=== PATIENT | male | born 1955 | race Caucasian/White ===

== ENCOUNTER 2020-07-09 02:02 | Emergency (ER) | payer MEDICARE, MEDICAID, SELFPAY ==
[2020-07-09 02:03] VITALS: BP 108/66; PULSE 61; RESP 17; TEMP 36.4; O2SAT 98; BMI 21.2
--- NOTE | 2020-07-09 02:15 | PC.NURSE ---
EKG done at 0215 and shown to ER doctor
--- NOTE | 2020-07-09 02:16 | XR_ITS ---
WS: [id number] PORTABLE CHEST HISTORY: sob COMPARISON: None available. Prior CABG. Slight elevation of the LEFT hemidiaphragm. Lungs are hyperinflated with mild biapical pleural thicke emmett. Increased interstitial thickening at the RIGHT lung base. Small LEFT pneumothorax. Cardiac size: Normal. Mediastinum/Aorta: Normal mediastinum. No osseous abnormality seen. XR/XR chest 1V portable [id number] IMPRESSION: 1. Small LEFT pleural effusion and suspected mild LEFT lower lobe pneumonitis. 2. Prior CABG.
--- NOTE | 2020-07-09 02:17 | ECG_ITS ---
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 Measurements Intervals [place] Rate: 59 P: 87 [place]: 164 QRS: 86 QRSD: 98 T: 72 QT: 380 QTc: 379 Interpretive Statements SINUS BRADYCARDIA NONSPECIFIC T-WAVE ABNORMALITY No previous ECG available for comparison Electronically Signed On 07-10-2020 0:13:39 CDT by Naseem Villalobos M.D. [email or web address]/[id number] f
[2020-07-09 02:38] LABS: ABG PCO2 37.1 mmHg (35-45); ABG PH Result 7.45 (7.35-7.45); Arterial Blood Gas Hematocrit 30.6 % (42-52); Base Excess ABG 1.9 mmol/L (-2.0-2.0); Blood Gas Allen Test Pos; Blood Gas Sample Site Radial, left; Blood Gas Sample Type Arterial; HCO3 ABG 25.9 mmol/L (22-26); HGB O2 Sat 93.3 % (95-100); Methemoglobin 0.5 % (0.4-1.5); Oxygen Device ROOM AIR; PO2 ABG 67.4 mmHg (80.0-100.0)
--- NOTE | 2020-07-09 02:50 | W.ED.SOB ---
HPI - SOB/Dyspnea General: Chief Complaint: Shortness of Breath/Dyspnea Stated Complaint: diff breathing Time Seen by Provider: 07/09/20 02:04 History of Present Illness: HPI Narrative: 64-year-old male 2 weeks out from two-vessel CABG performed at [facility]. He presents after awakening with shortness of breath that was significant. He never really had chest pain, save the postsurgical pain he has been dealing with. Shortness of breath has improved at this point to some degree. MD elicited complaint: shortness of breath Pertinent past history: other Associated symptoms: Reports nausea and orthopnea; Deny abdominal pain, chest pain, dizziness, fever(s), palpitations or vomiting Review of Systems Const: Denies: fever(s) or chills Eyes: Denies: change in vision or blurry vision ENMT: Denies: swelling of lips/tongue or sinus pain Card: Reports: orthopnea; Denies: chest pain, palpitations, irregular heart rhythm, edema, swelling of feet/ankles or dyspnea on exertion Resp: Reports: dyspnea; Denies: productive cough, non-productive cough or wheezing GI: Reports: nausea; Denies: abdominal pain or vomiting : Denies: difficulty urinating, dysuria or hematuria Musc: Denies: neck pain Skin/Breast: Denies: rash or erythema Neuro: Denies: headache(s), dizziness or vertigo Psych: Denies: anxiety Physical Exam Const: GENERAL APPEARANCE: well developed ORIENTATION/CONSCIOUSNESS: Yes oriented to person, Yes oriented to place and Yes oriented to time HENMT: COMMON NORMALS: normocephalic, external ears normal and Normal external nose present HEAD & SCALP: normocephalic FACE & SINUS: normal facial exam NOSE: Normal external nose present and No nasal discharge present EXTERNAL EAR: Yes external ears normal Eye: COMMON NORMALS: Equal, round and reactive pupils present, EOMs intact bilaterally and conjunctivae normal EYELID: eyelids normal CONJUNCTIVA: Yes conjunctivae normal PUPIL: Yes Equal, round and reactive pupils present Neck/C-Spine: COMMON NORMALS: full ROM GENERAL: No tracheal deviation Chest: COMMONS NORMALS: normal inspection of the chest CHEST: No tenderness Resp: COMMON NORMALS: clear to auscultation bilaterally EFFORT & INSPECTION: No tachypneic, No respiratory distress, No retractions, No uses accessory muscles and No tracheal deviation AUSCULTATION: clear to auscultation bilaterally, no rhonchi, no wheezes and lung sounds not diminished Cardio: COMMON NORMALS: regular rate and regular rhythm RATE: regular rate RHYTHM: regular rhythm HEART SOUNDS: no murmurs PERIPHERAL PULSES: radial pulses present GI: INSPECTION: No abdominal distension AUSCULTATION: No Hyperactive bowel sounds present and No Hypoactive bowel sounds present PALPATION: No Guarding due to palpation present (GI) and No Rigid due to palpation PERCUSSION: no dullness to percussion and no tympanic to percussion Neuro: SENSORIUM/ORIENTATION: Yes oriented to person, Yes oriented to place and Yes oriented to time Psych: COMMON NORMALS: mental status grossly normal Skin: COMMON NORMALS: no rashes or lesions noted GENERAL SKIN EXAM: no rashes or lesions noted Course Vital Signs: Vital signs: Vital Signs Temperature 97.5 F L 07/09/20 02:03 Pulse Rate 51 L 07/09/20 05:25 Respiratory Rate 22 H 07/09/20 03:00 Blood Pressure 97/60 07/09/20 05:25 Pulse Oximetry 98 07/09/20 04:20 MDM - SOB/Dyspnea MDM Narrative: Medical decision making narrative: Self resolved chest discomfort and shortness of breath, in a patient who had CABG surgery a couple weeks ago. His discomfort was not really pain, it was more of a spasm in the chest. [place] like he could not take a deep breath. This resolved on its own. His saturations have been 98 to 100% on room air. His scar looks clinically very good. His chest x-ray shows no mediastinal widening, no cardiomegaly, no pleural effusions. Lungs are clear. Hemoglobin is 9.7. White count 7.1. Sodium 129. His potassium is normal at 4.1. His troponin did not elevate at 2 hours. His EKG shows no acute ST changes. He will be allowed home. Lab Data: Labs: Lab Results 07/09/20 07/09/20 07/09/20 Range/Units 02:30 02:35 02:35 WBC 7.1 (4.0-10.0) 10^3/ uL RBC 3.31 L (4.1-5.3) 10^6/u L Hgb 9.7 L (11.7-16.6) g/dL Hct 31.8 L (42.0-52.0) % MCV 96.1 H (80-94) fL MCH 29.3 (28.0-34.0) pg MCHC 30.5 (30.0-36.0) g/dL RDW 12.5 (12.1-15.1) % Plt Count 398 (130-400) 10^3/c mm MPV 8.5 (7.4-10.4) fL Neut % (Auto) 69.8 % Lymph % (Auto) 17.1 % Elliott % (Auto) 9.0 % Eos % (Auto) 2.9 % Baso % (Auto) 0.8 % Neut # (Auto) 4.96 (1.8-7.7) 10^3/u L Lymph # (Auto) 1.2 (0.8-4.8) 10^3/u L Elliott # (Auto) 0.6 (0.2-0.9) 10^3/u L Eos # (Auto) 0.2 (0.0-0.8) 10^3/u L Baso # (Auto) 0.1 (0.0-0.1) 10^3/u L Nucleated RBC % (a uto) 0 % Nucleated RBCs # 0.0 /100WBC Specimen Type Arterial Sample Site Radial, left ABG pH 7.45 (7.35-7.45) ABG pCO2 37.1 (35-45) mmHg ABG pO2 67.4 L (80.0-100.0) mmH g ABG HCO3 25.9 (22-26) mmol/L ABG Base Excess 1.9 (-2.0-2.0) mmol/ L Suhas Test Pos Hematocrit 30.6 L (42-52) % Hgb O2 Saturation 93.3 L (95-100) % Carboxyhemoglobin 1.0 (0.4-20.1) %THgb Methemoglobin 0.5 (0.4-1.5) % Total Hemoglobin 10.0 L (14-18) g/dL O2 Delivery Device Room air Vp Medical ID ellpe Sodium 129 L (136-145) mmol/L Potassium 4.1 (3.5-5.1) mmol/L Chloride 97 L (98-107) mmol/L Carbon Dioxide 23 (22-29) mmol/L Anion Gap 13.1 (5-19) BUN 11 (8-23) mg/dL Creatinine 1.0 (0.7-1.2) mg/dL GFR Calculation 74.8 L (90-130) mL/min Glucose 99 (65-115) mg/dL Calculated Osmolal ity 264 L (285-295) mOsm/k g Lactic Acid (0.5-2.2) mmol/L Calcium 8.9 (8.5-10.5) mg/dL Total Bilirubin 0.2 (0.15-1.2) mg/dL AST 12 (0-40) U/L ALT 11 (0-41) U/L Alkaline Phosphata se 93 (40-130) IU/L Troponin T Baselin e (0-15) ng/L Troponin T 120 Min [place] (0-15) ng/L Delta Troponin T (0-10) ABS# NT-Pro-B Natriuret Pep 823 H (0-125) pg/mL Total Protein 6.5 L (6.6-8.7) g/dL Albumin 3.2 L (3.5-5.2) g/dL Globulin 3.3 (1.3-4.6) g/dL 07/09/20 07/09/20 07/09/20 Range/Units 02:35 02:35 04:25 WBC (4.0-10.0) 10^3/ uL RBC (4.1-5.3) 10^6/u L Hgb (11.7-16.6) g/dL Hct (42.0-52.0) % MCV (80-94) fL MCH (28.0-34.0) pg MCHC (30.0-36.0) g/dL RDW (12.1-15.1) % Plt Count (130-400) 10^3/c mm MPV (7.4-10.4) fL Neut % (Auto) % Lymph % (Auto) % Elliott % (Auto) % Eos % (Auto) % Baso % (Auto) % Neut # (Auto) (1.8-7.7) 10^3/u L Lymph # (Auto) (0.8-4.8) 10^3/u L Elliott # (Auto) (0.2-0.9) 10^3/u L Eos # (Auto) (0.0-0.8) 10^3/u L Baso # (Auto) (0.0-0.1) 10^3/u L Nucleated RBC % (a uto) % Nucleated RBCs # /100WBC Specimen Type Sample Site ABG pH (7.35-7.45) ABG pCO2 (35-45) mmHg ABG pO2 (80.0-100.0) mmH g ABG HCO3 (22-26) mmol/L ABG Base Excess (-2.0-2.0) mmol/ L Suhas Test Hematocrit (42-52) % Hgb O2 Saturation (95-100) % Carboxyhemoglobin (0.4-20.1) %THgb Methemoglobin (0.4-1.5) % Total Hemoglobin (14-18) g/dL O2 Delivery Device Vp Medical ID Sodium (136-145) mmol/L Potassium (3.5-5.1) mmol/L Chloride (98-107) mmol/L Carbon Dioxide (22-29) mmol/L Anion Gap (5-19) BUN (8-23) mg/dL Creatinine (0.7-1.2) mg/dL GFR Calculation (90-130) mL/min Glucose (65-115) mg/dL Calculated Osmolal ity (285-295) mOsm/k g Lactic Acid 1.1 (0.5-2.2) mmol/L Calcium (8.5-10.5) mg/dL Total Bilirubin (0.15-1.2) mg/dL AST (0-40) U/L ALT (0-41) U/L Alkaline Phosphata se (40-130) IU/L Troponin T Baselin e 38 H (0-15) ng/L Troponin T 120 Min [place] 38.72 H (0-15) ng/L Delta Troponin T 0.72 (0-10) ABS# NT-Pro-B Natriuret Pep (0-125) pg/mL Total Protein (6.6-8.7) g/dL Albumin (3.5-5.2) g/dL Globulin (1.3-4.6) g/dL Discharge Plan Discharge Patient Disposition: Home Clinical Impression: Chest discomfort Condition: Stable Discharge Orders: Discharge Order (Routine); Ordered 07/09/20 Ordered By: Augusto Thurston Discharge Diet: Usual diet Discharge Activity: Increase activity as tolerated Patient Instructions: Chest Pain (ED) Activity Restrictions/Additional Instructions: Return for any return of your chest discomfort, shortness of breath, or any other concerning symptoms such as cough, fever greater than 100, sputum production, leg swelling, etc. Call your doctor Friday morning. There may be more outpatient tests they wish to perform. You should have your blood count checked in several days to ensure it is staying at an appropriate level. Coding Level of Care Code ED Laminator Printed Circuit Boards for Chg Fwd Exam Comprehensive
[2020-07-09 02:58] LABS: Basophils # 0.1 10^3/uL (0.0-0.1); Basophils % 0.8 %; Eosinophils # 0.2 10^3/uL (0.0-0.8); Eosinophils % 2.9 %; Hematocrit 31.8 % (42.0-52.0); Hemoglobin 9.7 g/dL (11.7-16.6); Lymphocytes # 1.2 10^3/uL (0.8-4.8); Lymphocytes % 17.1 %; Mean Corpuscular HGB Conc 30.5 g/dL (30.0-36.0); Mean Corpuscular Hemoglobin 29.3 pg (28.0-34.0); Mean Corpuscular Volume 96.1 fL (80-94); Mean Platelet Volume 8.5 fL (7.4-10.4); Monocytes # 0.6 10^3/uL (0.2-0.9); Neutrophils # 4.96 10^3/uL (1.8-7.7); Neutrophils % 69.8 %; Nucleated Red Blood Cells % 0 %; Platelet Count 398 10^3/cmm (130-400); Red Blood Count 3.31 10^6/uL (4.1-5.3); Red Cell Distribution Width 12.5 % (12.1-15.1); White Blood Count 7.1 10^3/uL (4.0-10.0)
[2020-07-09 03:00] VITALS: BP 104/52; RESP 22; O2SAT 100
[2020-07-09 03:17] LABS: Lactic Sepsis W/Reflex 1.1 mmol/L (0.5-2.2)
[2020-07-09 03:29] LABS: Alanine Aminotransferase 11 U/L (0-41); Albumin Level 3.2 g/dL (3.5-5.2); Alkaline Phosphatase 93 IU/L (40-130); Anion Gap 13.1 (5-19); Aspartate Amino Transferase 12 U/L (0-40); Blood Urea Nitrogen 11 mg/dL (8-23); Calcium 8.9 mg/dL (8.5-10.5); Carbon Dioxide 23 mmol/L (22-29); Chloride 97 mmol/L (98-107); Globulin 3.3 g/dL (1.3-4.6); Glomerular Filtration Rate 74.8 mL/min (90-130); Glucose 99 mg/dL (65-115); NT Pro B Type Natriuretic Pept 823 pg/mL (0-125); Osmolality Calculated 264 mOsm/kg (285-295); Potassium 4.1 mmol/L (3.5-5.1); Sodium 129 mmol/L (136-145); Total Bilirubin 0.2 mg/dL (0.15-1.2); Total Protein 6.5 g/dL (6.6-8.7)
[2020-07-09 03:54] LABS: Troponin(5th) Baseline 38 ng/L (0-15)
--- NOTE | 2020-07-09 04:04 | PC.NURSE ---
EKG done at 0405 and shown to ER doctor
--- NOTE | 2020-07-09 04:17 | ECG_ITS ---
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 Measurements Intervals [place] Rate: 62 P: 87 WA: 169 QRS: 75 QRSD: 102 T: 75 QT: 354 QTc: 362 Interpretive Statements SINUS RHYTHM NONSPECIFIC T-WAVE ABNORMALITY No previous ECG available for comparison Electronically Signed On 07-10-2020 0:27:18 CDT by Naseem Villalobos M.D. [email or web address].PVPower/store/[id number]
[2020-07-09 04:20] VITALS: BP 94/52; PULSE 57; O2SAT 98
[2020-07-09 04:54] LABS: Troponin 5 2HR 38.72 ng/L (0-15); Troponin 5 2HR Delta 0.72 ABS# (0-10)
[2020-07-09 05:25] VITALS: BP 97/60; PULSE 51
== END 2020-07-09 06:04 | disposition home or self-care (01) ==
PROVIDERS: Emergency Provider Emergency Medicine
DX: R07.89 Other chest pain (principal)
CPT/HCPCS: 12345; 36600; 71045; 80053; 82805; 83605; 83880; 84484; 85025; 93005; 99283; 99284

== ENCOUNTER → 2021-08-17 11:07 | Outpatient (BNVA) | payer MEDICARE, MEDICAID, SELFPAY | PROVIDERS: Visit Provider Surgery | DX: Z01.812 Encounter for preprocedural laboratory examination (principal); Z20.822 Contact with and (suspected) exposure to COVID-19 | CPT/HCPCS: 87635 ==

== ENCOUNTER 2021-08-23 06:21 | Day surgery (SDC) | payer MEDICARE, MEDICAID, SELFPAY ==
[2021-08-21 08:27] VITALS: BMI 22.1
[2021-08-23 06:32] VITALS: BP 143/91; PULSE 98; RESP 18; TEMP 36.3; O2SAT 98
--- NOTE | 2021-08-23 06:45 | W.PM.OPSUD ---
Surgery/Procedure H&P Update DATE OF PROCEDURE: August 23, 2021 DATE H&P PERFORMED: 08/14/21 H&P UPDATE INFORMATION: No changes to prior documentation PREOP DIAGNOSIS: Hematochezia, history of colon polyps. PLANNED PROCEDURE: Operation Date: 08/23/21 07:30 Proposed Procedures p Colonoscopy 68077 K92.1(Not Applicable) - Bao Whitfield MD
[2021-08-23 06:52] VITALS: BP 134/84; PULSE 68; RESP 18; TEMP 36.1; O2SAT 99
--- NOTE | 2021-08-23 07:04 | ANES.PREANE2 ---
Pre-Anesthetic Assessment Pre-Anesthetic Assessment: Height/Weight: Height 1.75 m Weight 68.039 kg Temp Pulse Resp BP Pulse Ox 97 F L 68 18 134/84 99 08/23/21 06:52 08/23/21 06:52 08/23/21 06:52 08/23/21 06:52 08/23/21 06:52 Preop Diagnosis: Hematochezia, history of colon polyps. Proposed Procedure: Operation Date: 08/23/21 07:30 Proposed Procedures p Colonoscopy 62816 K92.1(Not Applicable) - Bao Whitfield MD Familial anesthetic complications: none Was Beta Ezra taken within 24 hours: Yes Was Clonidine taken within 24 hours: N/A Last intake: Intake Last Solid Date 08/21/21 Social: Social History: No tobacco (history) Exam: Pre-Anes Outpt Exam: alert, oriented x 3, clear to auscultation bilaterally and regular rate & rhythm Airway: Submandibular: WNL Cervical ROM: WNL MP: 2 Dentition: False Pulmonary: Pulmonary: Asthma, COPD, REYNOLDS and Sleep apnea CV/HEM: CV/HEM: CAD, HTN and GA Comments: cabg x 2 stent x 1 : : None reported Hepatic: Hepatic: None reported GI: GI: GERD (occasional ) Metabolic: Metabolic: Hyperlipidemia Musc/skel: Musc/skel: Lower Back Pain and OA/DJD Neuropsych: Comments: had an intenna go through his eye socket and claims to not have any deficits Anesthetic Plan: ASA status: 3 Anesthesia: MAC Risk of > 500 ml blood loss (7ml/kg in children): No Data Anesthesia Cardiac Studies: No Data to Display
--- NOTE | 2021-08-23 07:11 | ECG_ITS ---
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 Measurements Intervals [place] Rate: 61 P: 83 MT: 170 QRS: 40 QRSD: 97 T: 39 QT: 394 QTc: 398 Interpretive Statements SINUS RHYTHM WITH SINUS ARRHYTHMIA VOLTAGE CRITERIA FOR LVH [MEETS CRITERIA IN ONE OF: R(aVL), S(V1), R(V5), R(V5/V6)+S(V1)] Compared to ECG 07/09/2020 04:03:47 Left ventricular hypertrophy now present T-wave abnormality no longer present Electronically Signed On 08-24-2021 5:52:54 CDT by Jamee Bell M.D. [id number]
[2021-08-23] MEDS: sodium chloride 0.9% 1,000 ML 30 ML IV (07:15)
[2021-08-23 08:40] VITALS: BP 113/65; PULSE 72; RESP 16; TEMP 36.2; O2SAT 99
--- NOTE | 2021-08-23 08:46 | ANE.PACU2 ---
Inpatient post-anesthesia follow up: Airway intact: Yes Vital signs: Temperature 97.2 F Pulse Rate 72 Respiratory Rate 16 Blood Pressure 113/65 Pulse Oximetry 99 Oxygen Delivery Me thod Room Air Oxygen Flow Rate Fraction of Inspir ed Oxygen Hydration adequate: Yes Nausea and vomiting: No Pain level: 1 Mental status: Baseline
[2021-08-23 09:01] VITALS: BP 128/77; PULSE 73; RESP 18; O2SAT 98
--- NOTE | 2021-08-23 10:16 | PC.NURSE ---
Pt gave a name and number for the person whom he said would pick him up. I called the number and the woman (Akosua) said she was unaware he wanted her to pick him up and had no idea she was supposed to come in today. She stated that she lived in [facility] and it would take some time for her to come in and get him. Then Akosua called back and stated Isaac would be coming to get the pt becuase he could get here faster and it would only take him about an hour. I instructed her that once someone had arrived they would need to come into the hospital and tell the admissions desk there were here to orange picking supervisor the pt so they would call us and we would bring the pt to the door at that time. The pt is sitting in the specials room waiting for someone to get here to pick him up and take him home.
== END 2021-08-23 11:40 | disposition home or self-care (01) ==
PROVIDERS: Visit Provider Surgery
PROC: 0DJD8ZZ Inspection of Lower Intestinal Tract, Via Natural or Artificial Opening Endoscopic (ICD-10-PCS; CPT 45378; principal; 2021-08-23 07:30)
DX: K92.1 Melena (principal); Z86.010 Personal history of colon polyps; Q27.33 Arteriovenous malformation of digestive system vessel; K64.8 Other hemorrhoids; M19.90 Unspecified osteoarthritis, unspecified site; J43.9 Emphysema, unspecified; I25.10 Atherosclerotic heart disease of native coronary artery without angina pectoris; I11.0 Hypertensive heart disease with heart failure; I50.9 Heart failure, unspecified; I25.2 Old myocardial infarction; E78.00 Pure hypercholesterolemia, unspecified; F17.210 Nicotine dependence, cigarettes, uncomplicated; Z79.82 Long term (current) use of aspirin; Z95.1 Presence of aortocoronary bypass graft; E78.5 Hyperlipidemia, unspecified
CPT/HCPCS: 45378; 93005; 96360; 96361; J2704; J7030

== ENCOUNTER 2022-11-16 09:35 | Emergency (ER) | payer MEDICARE, MEDICAID, SELFPAY ==
[2022-11-16 09:35] VITALS: BP 154/79; PULSE 56; RESP 15; TEMP 36.6; O2SAT 99
--- NOTE | 2022-11-16 09:43 | XRR_ITS ---
PROCEDURE INFORMATION: Exam: XR Chest Exam date and time: 11/16/2022 10:02 AM Age: 67 years old Clinical indication: Cough and dyspnea; Prior surgery; Additional info: Dyspnea/cough TECHNIQUE: Imaging protocol: Radiologic exam of the chest. Views: 1 view. COMPARISON: CR XR chest 1V portable [id number] 07/09/2020 2:21 AM FINDINGS: Lungs: The lung parenchyma is clear. Pleural spaces: No pneumothorax. No pleural effusion. Heart/Mediastinum: See Bones/joints finding. Bones/joints: Median sternotomy wires noted. Postsurgical changes in the mediastinum. XR/XR chest 1V portable [id number] IMPRESSION: No acute cardiopulmonary abnormality identified.
--- NOTE | 2022-11-16 09:43 | ECG_ITS ---
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 Measurements Intervals [place] Rate: 53 P: 81 [place]: 177 QRS: 70 QRSD: 97 T: 52 QT: 416 QTc: 391 Interpretive Statements SINUS BRADYCARDIA VOLTAGE CRITERIA FOR LVH [MEETS CRITERIA IN ONE OF: R(aVL), S(V1), R(V5), R(V5/V6)+S(V1)] Compared to ECG 08/23/2021 07:21:25 Sinus rhythm no longer present Sinus arrhythmia no longer present Electronically Signed On 11-17-2022 19:50:43 PLANT EQUIPMENT ENGINEER by Naseem Villalobos M.D. [email or web address] [facility].[email or web address]/store/[id number]
--- NOTE | 2022-11-16 09:54 | ED_ITS ---
HPI - Chest Pain General: Chief Complaint: Chest Pain Stated Complaint: chest pain and SOB Time Seen by Provider: 11/16/22 09:41 Source: patient Mode of arrival: ambulatory History of Present Illness: 67-year-old male who presents emergency room with complaints of chest pain. Chest pain began yesterday. He was not exerting hims elf radiates into his back and neck and left arm. He is pain-free at this time. When asked if he had other episodes recently he really could not tell me he states he does not remember that his short-term memory is poor. He does reaffirm that he is pain-free now he has no diaphoresis nausea or vomiting associated with the episode yesterday and overnight. He has known history of coronary artery disease and previously had a bypass graft has not been following with a purchasing/receiving recently. He is a former smoker is not diabetic. MD complaint: chest pain Onset (ago): day(s) Timing of current episode: episodic Onset: during rest Pain location: left chest Pain radiation: left arm, back and neck Severity: mild Quality: sharp Relieving factors: nothing Exacerbating factors: nothing Associated symptoms: Deny abdominal pain, diaphoresis, dyspnea, fever(s), leg edema, nausea, palpitations, sense of impending doom, syncope or vomiting Treatment prior to arrival: none Review of Systems Const: Denies: fever(s), chills or diaphoresis ENMT: Denies: throat pain, ear or mastoid pain, nasal discharge or nasal congestion Card: Reports: chest pain; Denies: palpitations, irregular heart rhythm, edema, syncope, dyspnea on exertion or orthopnea Resp: Denies: dyspnea GI: Denies: abdominal pain, nausea or vomiting : Denies: flank pain, dysuria, urinary frequency or urinary urgency Skin/Breast: Denies: rash or pruritus Physical Exam Const: GENERAL APPEARANCE: cooperative and comfortable ORIENTAT ION/CONSCIOUSNESS: Yes awake, Yes oriented to person, Yes oriented to place and Yes oriented to time HENMT: COMMON NORMALS: normocephalic, atraumatic and hearing grossly normal bilaterally HEAD & SCALP: normocephalic and atraumatic Resp: COMMON NORMALS: normal respiratory effort, No retractions, No use of accessory muscles and clear to auscultation bilaterally AUSCULTATION: clear to auscultation bilaterally Cardio: COMMON NORMALS: regular rate, regular rhythm and No murmurs present (Cardio) RATE: regular rate RHYTHM: regular rhythm GI: COMMON NORMALS: Soft to palpation and No hepatosplenomegaly present AUSCULTATION: Yes normoactive bowel sounds PALPATION: Yes Soft to palpation, No Tenderness to palpation present (GI), No Guarding due to palpation present (GI) and Yes No hepatosplenomegaly present Extremity: COMMON NORMALS: normal to inspection, capillary refill normal, no clubbing, cyanosis or edema, no calf tenderness and no pedal edema Neuro: SENSORIUM/ORIENTATION: Yes oriented to person, Yes oriented to place and Yes oriented to time Skin: COMMON NORMALS: no rashes or lesions noted GENERAL SKIN EXAM: no rashes or lesions noted Course Vital Signs: Vital signs: Vital Signs Temperature 97.9 F 11/16/22 09:35 Pulse Rate 52 L 11/16/22 11:31 Respiratory Rate 16 11/16/22 11:31 Blood Pressure 155/88 11/16/22 11:31 Pulse Oximetry 99 11/16/22 09:35 Oxygen Delivery Me thod 11/16/22 09:35 MDM - Chest Pain Medical Decision Making EKG and cardiac enzymes are unremarkable no acute ST changes on EKG. Patient has had no further symptoms. We will set him up for Lexiscan sestamibi stress test and follow-up with cardiology. In addition to that we will have him continue to take baby aspirin daily add isosorbide mononitrate 30 mg daily. Return if is further problems. Medical Records I reviewed the patient's medical records. Lab Data I reviewed the patient's lab results. 11/16/22 09:58 11/16/22 09:58 Radiology Impressions Chest X-Ray 11/16/22 09:43 IMPRESSION: No acute cardiopulmonary abnormality identified. Laboratory Results WBC 5.3 10^3/uL (4.0-10.0) 11/16/22 09:58 RBC 5.21 10^6/uL (4.1-5.3) 11/16/22 09:58 Hgb 15.2 g/dL (11.7-16.6) 11/16/22 09:58 Hct 46.5 % (42.0-52.0) 11/16/22 09:58 MCV 89.3 fl (80-94) 11/16/22 09:58 MCH 29.2 pg (28.0-34.0) 11/16/22 09:58 MCHC 32.7 g/dL (30.0-36.0) 11/16/22 09:58 RDW 11.9 % (12.1-15.1) L 11/16/22 09:58 Plt Count 259 10^3/cmm (130-400) 11/16/22 09:58 MPV 10.0 fL (7.4-10.4) 11/16/22 09:58 Neut % (Auto) 60.1 % 11/16/22 09:58 Lymph % (Auto) 28.3 % 11/16/22 09:58 Morrison % (Auto) 8.5 % 11/16/22 09:58 Eos % (Auto) 2.5 % 11/16/22 09:58 Baso % (Auto) 0.6 % 11/16/22 09:58 Neut # (Auto) 3.17 10^3/uL (1.8-7.7) 11/16/22 09:58 Lymph # (Auto) 1.5 10^3/uL (0.8-4.8) 11/16/22 09:58 Morrison # (Auto) 0.5 10^3/uL (0.2-0.9) 11/16/22 09:58 Eos # (Auto) 0.1 10^3/uL (0.0-0.8) 11/16/22 09:58 Baso # (Auto) 0.0 10^3/uL (0.0-0.1) 11/16/22 09:58 Nucleated RBC % (auto) 0 % 11/16/22 09:58 Nucleated RBCs # 0.0 /100WBC 11/16/22 09:58 Sodium 140 mmol/L (136-145) 11/16/22 09:58 Potassium 3.7 mmol/L (3.5-5.1) 11/16/22 09:58 Chloride 102 mmol/L (98-107) 11/16/22 09:58 Carbon Dioxide 30 mmol/L (22-29) H 11/16/22 09:58 Anion Gap 11.7 (5-19) 11/16/22 09:58 BUN 13 mg/dL (8-23) 11/16/22 09:58 Creatinine 0.9 mg/dL (0.7-1.2) 11/16/22 09:58 GFR Calculation 83.7 mL/min (90-130) L 11/16/22 09:58 Glucose 58 mg/dL (65-115) L 11/16/22 09:58 Calculated Osmolality 288 mOsm/kg (285-295) 11/16/22 09:58 Calcium 9.9 mg/dL (8.5-10.5) 11/16/22 09:58 Total Bilirubin 0.3 mg/dL (0.15-1.2) 11/16/22 09:58 AST 20 U/L (0-40) 11/16/22 09:58 ALT 22 U/L (0-41) 11/16/22 09:58 Alkaline Phosphatase 97 U/L (40-130) 11/16/22 09:58 Troponin T Baseline 6 ng/L (0-15) 11/16/22 09:58 Troponin T 120 Minute 6.60 ng/L (0-15) 11/16/22 12:12 Total Protein 7.8 g/dL (6.6-8.7) 11/16/22 09:58 Albumin 4.8 g/dL (3.5-5.2) 11/16/22 09:58 Globulin 3.0 g/dL (1.3-4.6) 11/16/22 09:58 Discharge Plan Discharge Patient Disposition: Home Clinical Impression: Atypical chest pain Condition: Stable Prescriptions: New isosorbide mononitrate 30 mg tablet extended release 24 hr 30 mg PO DAILY Qty: 30 0RF No Action fexofenadine [Jeimy Allergy] 180 mg Tablet 180 mg PO QAM aspirin 81 mg Tablet,Delayed Release (Dr/Ec) 81 mg PO .2-3 TIMES A WEEK tramadol 50 mg tablet 50 - 100 mg PO BID PRN (Reason: Pain) metoprolol succinate 25 mg Tablet Extended Release 24 Hr 12.5 - 25 mg PO DAILY PRN (Reason: Blood Pressure) ramipril 1.25 mg capsule 1.25 mg PO QPM multivitamin Tablet 1 tab PO DAILY zinc acetate 50 mg (zinc) Capsule 50 mg PO Q7D meloxicam 7.5 mg tablet 7.5 mg PO DAILY PRN (Reason: Pain) Nitrostat 0.4 mg Tablet, Sublingual 0.4 mg SUBLINGUAL Q5M PRN (Reason: Chest Pain) Rx Instructions: do not exceed 3 doses per episode Discharge Orders: Discharge ED (Routine); Ordered 11/16/22 Ordered By: Marino Herzog Referrals: MARGI BOWSER MD [Primary Care Provider] - Discharge Diet: Usual diet Discharge Activity: Limit activity as instructed Patient Instructions: Opioid Safety, Pain Management Activity Restrictions/Additional Instructions: You were seen today for chest discomfort. Your EKG and cardiac enzymes were negative. We will add isosorbide mononitrate 30 mg daily. Case management make arrangements for a Lexiscan sestamibi stress test and follow-up with cardiology. Coding Level of Care Code ED Digital Publishing Specialist for Chg Fwd Exam Detailed
[2022-11-16] MEDS: aspirin 81 mg Chew Tablet 324 MG PO (10:05)
[2022-11-16 10:09] LABS: Basophils % 0.6 %; Eosinophils # 0.1 10^3/uL (0.0-0.8); Eosinophils % 2.5 %; Hematocrit 46.5 % (42.0-52.0); Hemoglobin 15.2 g/dL (11.7-16.6); Lymphocytes # 1.5 10^3/uL (0.8-4.8); Lymphocytes % 28.3 %; Mean Corpuscular HGB Conc 32.7 g/dL (30.0-36.0); Mean Corpuscular Hemoglobin 29.2 pg (28.0-34.0); Mean Corpuscular Volume 89.3 fl (80-94); Monocytes # 0.5 10^3/uL (0.2-0.9); Monocytes % 8.5 %; Neutrophils # 3.17 10^3/uL (1.8-7.7); Neutrophils % 60.1 %; Nucleated Red Blood Cells % 0 %; Platelet Count 259 10^3/cmm (130-400); Red Blood Count 5.21 10^6/uL (4.1-5.3); Red Cell Distribution Width 11.9 % (12.1-15.1); White Blood Count 5.3 10^3/uL (4.0-10.0)
[2022-11-16 10:33] LABS: Troponin(5th) Baseline 6 ng/L (0-15)
[2022-11-16 10:34] LABS: Alanine Aminotransferase 22 U/L (0-41); Albumin Level 4.8 g/dL (3.5-5.2); Alkaline Phosphatase 97 U/L (40-130); Anion Gap 11.7 (5-19); Aspartate Amino Transferase 20 U/L (0-40); Blood Urea Nitrogen 13 mg/dL (8-23); Calcium 9.9 mg/dL (8.5-10.5); Carbon Dioxide 30 mmol/L (22-29); Chloride 102 mmol/L (98-107); Glomerular Filtration Rate 83.7 mL/min (90-130); Glucose 58 mg/dL (65-115); Osmolality Calculated 288 mOsm/kg (285-295); Potassium 3.7 mmol/L (3.5-5.1); Sodium 140 mmol/L (136-145); Total Bilirubin 0.3 mg/dL (0.15-1.2); Total Protein 7.8 g/dL (6.6-8.7)
--- NOTE | 2022-11-16 10:49 | PC.PHAR ---
pt states he takes care of his own medications-pt states takes metoprolol succ er 12.5-25mg daily prn-ext med history doesnt show when last filled [facility] is closed no way to verify if er or tartrate-pt states he may take 81mg of aspirin 2-3 times a week-notes are made in the pharmacy comments
[2022-11-16 11:31] VITALS: BP 155/88; PULSE 52; RESP 16
--- NOTE | 2022-11-16 12:03 | ECG_ITS ---
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 Measurements Intervals [place] Rate: 52 P: 81 CA: 185 QRS: 71 QRSD: 95 T: 52 QT: 425 QTc: 397 Interpretive Statements SINUS BRADYCARDIA VOLTAGE CRITERIA FOR LVH [MEETS CRITERIA IN ONE OF: R(aVL), S(V1), R(V5), R(V5/V6)+S(V1)] Compared to ECG 11/16/2022 09:48:27 No significant changes Electronically Signed On 11-17-2022 20:17:05 SALES REPRESENTATIVE [employer] by Naseem Villalobos M.D. [email or web address]/[id number]
[2022-11-16 13:16] VITALS: BP 122/71; PULSE 78; RESP 18; O2SAT 95
--- NOTE | 2022-11-18 10:14 | DCPLANNER ---
Addendum entered by Danielle Rasmussen 01/21/23 08:09: Patient had a follow up appointment scheduled with heart care - patient did attend appointment Patient had a follow up appointment scheduled for an outpatient stress test - patient did attend appointment Addendum entered by Danielle Rasmussen 11/19/22 10:45: Patient has a stress test scheduled for Saturday, December 17, 2022 at 10:30. Centralized scheduling will call patient with appointment information. Patient has a follow up appointment scheduled for December at 3:[address] Villalobos at [facility]. Clinic will call patient with appointment information. Original Note: financial services manager had message to schedule an outpatient stress test for patient. financial services manager faxed signed order to centralized scheduling, who will call patient with appointment information. financial services manager also had message to schedule a follow up appointment for patient with cardiology. financial services manager sent patients information to the front office staff at [facility]. Patients information will be printed and reviewed. Clinic will call patient with appointment information.
== END 2022-11-16 13:17 | disposition home or self-care (01) ==
PROVIDERS: Emergency Provider Family Medicine; PCP Family Medicine
DX: R07.89 Other chest pain (principal); Z79.82 Long term (current) use of aspirin
CPT/HCPCS: 36415; 71045; 80053; 84484; 85025; 93005; 99285

== ENCOUNTER → 2023-01-02 13:52 | Outpatient (BNVA) | payer MEDICARE, MEDICAID, SELFPAY | PROVIDERS: PCP Family Medicine; Visit Provider Internal Medicine Cardiovascular Disease | DX: I25.118 Atherosclerotic heart disease of native coronary artery with other forms of angina pectoris (principal); E78.5 Hyperlipidemia, unspecified; I10 Essential (primary) hypertension; R06.02 Shortness of breath; Z87.891 Personal history of nicotine dependence; Z79.82 Long term (current) use of aspirin; Z95.1 Presence of aortocoronary bypass graft | CPT/HCPCS: 93005; 99204 ==

== ENCOUNTER 2023-01-06 10:30 | Outpatient (CLI) | payer MEDICARE, MEDICAID, SELFPAY ==
--- NOTE | 2023-01-06 | ECG_ITS ---
[facility] Test Date: 2023-01-06 Pat Name: Mich Bolaños Department: Room: Gender: Male Machine Captain: : 1955 Requested By: MARGI Norman Order Number: [id number] Andrea MD: Naseem Villalobos M.D. Interpretive Statements NAME OF STUDY: LEXISCAN SESTAMIBI STRESS TEST INDICATION: Atypical Chest Pain, PROCEDURE: At the baseline, the EKG revealed sinus bradycardia with a rate of [address] Ts. Normal [place] and QRS duration.. The baseline heart was 59 bpm with a blood pressue of 125/80 mm of Hg Lexiscan was infused over a period of 20 seconds. A total of 0.4 milligrams of Lexiscan was infused. The stress phase was continued for a total of 5 minutes. Heart rate at the end of the stress phase was 73 bpm with a blood pressure 116/65 mm of Hg. The EKG at the peak infusion revealed some nonspecific T wave changes. Few PVCs also were noted during the stress. Sestamibi was injected 20 seconds after the Lexiscan infusion. Heart rate at the end of the recovery phase was 68 bpm with a blood pressure of 127/66 mm of Hg. CONCLUSION: 1. No significant EKG changes with the LexiScan infusion 2. No LexiScan induced chest pain or cardiac arrhythmia 3. Normal blood pressure and heart rate response 4. Sestamibi/sestamibi perfusion scan pending; see separate report. Electronically Signed On 01-11-2023 15:52:52 DATA LEAD by Naseem Villalobos M.D. [email or web address]/[id number]
[2023-01-06 10:50] VITALS: BMI 22.1
--- NOTE | 2023-01-06 10:51 | NMCV_ITS ---
NM apryl perf SPECT r/s* [id number] Mich Bolaños Age: 67 Gender: M : 1955 Exam Date: 01/06/2023 11:49 Ordering Phys: MARGI BOWSER MD Technologist: JADIEL Lai Exam Location: [facility] Indications: CHEST PAIN STRESS TEST Please [facility] IMAGE PROTOCOL Rest/Stress 1 Lexiscan Day Radiopharmaceutical Dose (mCi) Administration Site Administered by Rest: Tc-99m 10.7 IV JADIEL Pabon Sestamibi Stress:Tc-99m 33.0 IV JADIEL Pabon Sestamibi Rest: 06-Jan-2023 60 Discovery 630 Stress: 06-Jan-2023 30 Discovery 630 0.4mg Lexiscan. Images obtained in supine and prone position. SPECT RESULTS Technical Quality: Excellent Raw Data Analysis: Normal Image Corrections: No attenuation or motion correction applied Summed Stress Score: 6 Summed Rest Score: 0 Summed Difference Score: 6 PERFUSION FINDINGS Moderate area of moderately decreased tracer uptake in the basal and mid inferolateral and apical lateral regions. Almost complete reversibility was noted in this area at rest. FUNCTIONAL RESULTS (calculated via Gated SPECT) Stress Image LV EF (%): 54 Stress EDV (mL):97 TID: 1.01 Stress ESV (mL):45 FUNCTIONAL FINDINGS: Moderate diffuse hypokinesia of the septum and mild hypokinesia of the apex were noted. IMPRESSIONS 1. Myocardial perfusion imaging revealing moderate area of reversible defect in the inferolateral and apical lateral regions suggesting ischemia in the distribution of the left circumflex artery. 2. Normal LV ejection fraction of 54%. 3. LV wall motion analysis revealing moderate diffuse hypokinesia of the septum and mild hypokinesia of the apex. 4. LV volume, upper limit of normal No similar previous studies are available for comparison Dr Naseem Villalobos MD [facility] (Electronically Signed) Final Date: 07 January 2023 08:15 S
[2023-01-06] MEDS: regadenoson 0.4 Mg/5 ml Syringe IVP (12:18)
[2023-01-06 12:29] VITALS: BP 127/66; PULSE 68
== END 2023-01-06 10:31 | disposition home or self-care (01) ==
LOC: CDL 10:33
PROVIDERS: PCP Family Medicine; Visit Provider Family Medicine
DX: R07.89 Other chest pain (principal)
CPT/HCPCS: 36415; 78452; 93017; 96374; A9500; J2785

== ENCOUNTER 2023-01-31 09:57 | Outpatient (CLI) | payer MEDICARE, MEDICAID, SELFPAY ==
--- NOTE | 2023-01-31 10:15 | USCV_ITS ---
Mich Bolaños Age: 67 Gender: M : 1955 Exam Date: 01/31/2023 10:26 Ordering Phys: Naseem Villalobos MD ([email or web address]) Technologist: Exam Location: [facility] [place] Indication: hx of mi BP: 125 / 73 HR: 53 Rhythm: Sinus Technical Quality: Adequate MEASUREMENTS (Male / Female) Normal Values 2D ECHO LV Diastolic Diameter PLAX 4.4 cm 4.2 - 5.9 / 3.9 - 5.3 cm LV Systolic Diameter PLAX 2.4 cm IVS Diastolic Thickness 1.1 cm 0.6 - 1.0 / 0.6 - 0.9 cm IVS Systolic Thickness 1.5 cm LVPW Diastolic Thickness 0.9 cm 0.6 - 1.0 / 0.6 - 0.9 cm LVPW Systolic Thickness 1.5 cm LVOT Diameter 2.0 cm LV Ejection Fraction 2D Teich 72.0 % LV Ejection Fraction MOD 2C 56.9 % LV Ejection Fraction 2C AL 56.1 % LA Diameter 3.7 cm LA Width 3.5 cm IVC Diameter 0.8 cm M-MODE Aortic Annulus Diameter 3.8 cm LA Ao Ratio MM 1.1 MV E Point Septal Separation 1.4 cm DOPPLER AV Peak Velocity 106.0 cm/s LVOT Peak Velocity 104.0 cm/s AV Area Cont Eq vti 2.8 cm squared AV Area Cont Eq pk 3.2 cm squared MV E' Velocity 9.0 cm/s TR Peak Velocity 280.0 cm/s TR Peak Gradient 31.4 mmHg FINDINGS Left Ventricle Mild diffuse hypokinesia of the inferior wall and septal segments. LV ejection fraction 45 to 50%. Right Ventricle The right ventricle is normal in size and function. Right Atrium The right atrium is normal in size. Left Atrium The left atrium is normal in size. Mitral Valve Trace to mild mitral valve regurgitation. Thickened mitral valve. Aortic Valve No intracardiac masses. Thickened aortic valve. Tricuspid Valve No gross abnormalities noted Pulmonic Valve No gross abnormalities noted Pericardium Normal pericardium without effusion. Aorta Normal ascending aorta dimension. IVC The inferior vena cava appears normal. CONCLUSIONS Mild diffuse hypokinesia of the inferior wall and septal segments. LV ejection fraction 45 to 50%. Trace to mild mitral valve regurgitation. Thickened mitral valve. Thickened aortic valve. No intracardiac masses. No pericardial effusion No similar previous studies are available for comparison Dr Naseem Villalobos MD [facility] (Electronically Signed) Final Date: 02 February 2023 17:46 S
== END 2023-01-31 09:58 | disposition home or self-care (01) ==
LOC: RAD 10:03
PROVIDERS: PCP Family Medicine; Visit Provider Internal Medicine Cardiovascular Disease
DX: R06.09 Other forms of dyspnea (principal); I08.0 Rheumatic disorders of both mitral and aortic valves
CPT/HCPCS: 93306

== ENCOUNTER → 2023-03-06 10:04 | Outpatient (BNVA) | payer MEDICARE, MEDICAID, SELFPAY | PROVIDERS: PCP Family Medicine; Visit Provider Internal Medicine Cardiovascular Disease | DX: I42.9 Cardiomyopathy, unspecified (principal); I25.118 Atherosclerotic heart disease of native coronary artery with other forms of angina pectoris; R06.02 Shortness of breath; I10 Essential (primary) hypertension; E78.5 Hyperlipidemia, unspecified; F17.200 Nicotine dependence, unspecified, uncomplicated; Z79.82 Long term (current) use of aspirin | CPT/HCPCS: 99215 ==

== ENCOUNTER → 2023-07-17 13:54 | Outpatient (BNVA) | payer MEDICARE, MEDICAID, SELFPAY | PROVIDERS: PCP Family Medicine; Visit Provider Internal Medicine Cardiovascular Disease | DX: I25.118 Atherosclerotic heart disease of native coronary artery with other forms of angina pectoris (principal); R06.02 Shortness of breath; I42.8 Other cardiomyopathies; F17.200 Nicotine dependence, unspecified, uncomplicated; I10 Essential (primary) hypertension; E78.5 Hyperlipidemia, unspecified | CPT/HCPCS: 99214 ==

== ENCOUNTER → 2024-01-27 13:36 | Outpatient (BNVA) | payer MEDICARE, MEDICAID, SELFPAY | PROVIDERS: PCP Family Medicine; Visit Provider Internal Medicine Cardiovascular Disease | DX: I25.118 Atherosclerotic heart disease of native coronary artery with other forms of angina pectoris (principal); R94.39 Abnormal result of other cardiovascular function study; E78.5 Hyperlipidemia, unspecified; I10 Essential (primary) hypertension; I25.5 Ischemic cardiomyopathy; Z87.891 Personal history of nicotine dependence | CPT/HCPCS: 99214 ==

== ENCOUNTER → 2024-05-28 10:14 | Outpatient (BNVA) | payer MEDICARE, MEDICAID, SELFPAY | PROVIDERS: PCP Family Medicine; Visit Provider Nurse Practitioner Family | DX: I25.118 Atherosclerotic heart disease of native coronary artery with other forms of angina pectoris (principal); I10 Essential (primary) hypertension; Z87.891 Personal history of nicotine dependence | CPT/HCPCS: 99214 ==

== ENCOUNTER 2024-06-07 05:38 | Outpatient (CLI) | payer MEDICARE, MEDICAID, SELFPAY ==
[2024-06-07] VITALS (35 sets, daily range): BP systolic 97–151; BP diastolic 53–87; PULSE 44–68; RESP 2–20; TEMP 36.4; O2SAT 93–99; BMI 23.1
--- NOTE | 2024-06-07 06:00 | XACV_ITS ---
Exam Room: 2 Ht: 175 cm Wt: 71 kg BSA: 1.87 m2 Gender: Male : 1955 Any Known Allergies: Other Exam Priority: Routine Procedure(s): Procedure Description: Diagnostic procedure Procedure Description: Left Heart Catheterization Procedure Description: Left ventriculography Procedure Description: Venous Graft Catheterization Procedure Description: BLANCO Graft Catheterization Procedure Description: Coronary Angiography Wilfredo GARNETT; Diagnostic Cath Status: Elective Diagnostic Findings * The left main is a medium caliber vessel which was found to have around 30% distal narrowing. * There is a left handed descending artery is a medium caliber vessel which appears to wrap around the LV apex minimally. The proximal area was found to have around 20 to 30% diffuse narrowing. Retrograde flow was noted into the distal lumbar of the BLANCO. The first and second diagonal branches were found to have 30 to 40% diffuse disease proximally. No other significant stenotic lesions. * There is a small to medium caliber intermedius vessel (high obtuse marginal branch )which also was found to have proximal around 20 to 30% diffuse stenosis. * The circumflex artery was found to be a small to medium caliber nondominant vessel which is totally occluded, after giving of small obtuse marginal branch.. * The right coronary artery appears to be subtotally occluded distally near to the bifurcation. Competitive flow was noted in the PLV branch. Retrograde flow was noted in the into a small caliber circumflex artery in the AV groove through collaterals from the PLV branch.. Conclusions 1. 68-year-old white male with a history of atherosclerotic heart disease, status post coronary bypass surgery, now presents with complaints of some chest pain and shortness of breath. Abnormal Myocardial perfusion imaging. Patient apparently had a BLANCO to the LAD and venous graft to the PDA. For further evaluation of his coronary status as well as the graft status, a cardiac catheterization was recommended. The patient underwent left heart catheterization with a left and right coronary angiogram and graft angiogram today. The findings are as follows.. 2. 1. 30% distal left main disease. 2. Mild diffuse disease in the left and descending artery. Mild diffuse disease in the proximal segments of the diagonal branches. 3. Mild disease in the high OM/intermedius artery. Total occlusion of the nondominant circumflex artery after giving of the second obtuse marginal branch. 4. Subtotal occlusion of the distal RCA #5. Patent BLANCO to LAD which was found to be getting atretic. 6. Patent venous graft to the PDA branch of the right coronary artery. Significant right left collaterals filling of the circumflex artery in the AV groove . Normal LV ejection fraction of 50%. LVEDP was 6 mmHg. Diagnostic RX Recommendation: medical therapy and/or counseling LV EDP: 6 mmHg Ventriculography Ejection Fraction: 50.0 % Left Ventriculography Findings: * The LV gram was performed in the CLEMENTS projection. LV cavity patient with normal size. The overall ejection fraction was around 50%. No filling defects were noted. No significant mitral valve prolapse or mitral regurgitation. Pressures Phase:Rest AO : 152 / 73 ( 101 ) @ 8:34:00 AM 96 / 66 ( 81 ) @ 8:37:00 AM 105 / 73 ( 89 ) @ 8:41:00 AM 106 / 74 ( 90 ) @ 8:46:00 AM 122 / 51 ( 79 ) @ 8:56:00 AM 123 / 52 ( 81 ) @ 8:56:00 AM LV : 131 / -18 / 6 @ 8:54:00 AM 124 / -17 / 5 @ 8:55:00 AM 125 / -16 / 6 @ 8:56:00 AM Valves Phase:DefaultPhase AV : 0.0 @ 8:08:45 AM 0.0 @ 8:08:45 AM AV Mean Gradient: 0.0 @ 8:08:45 AM Clinical Evaluation EBL: 5mL-10mL Procedural Details Procedure Consent Obtained. Current Diagnosis : Chest Pain. Pre-Procedure Time Out. Identified patient by full name and date of as verbalized by the patient/guarantor. Does the consent match the physician's order: Yes. Accurate & Complete Informed Consent: Yes. Inpatient/Outpatient History & Physical on Chart: Yes. If H&P is completed, is and addenduem needed: No; If yes, is the addendum complete: N/A. Visualize and Verify Site with Patient/Guarantor: N/A. Relevant Radiology Images available: Yes. Pre-op teaching completed and patient verbalized understanding. The risks, benefits, and alternatives of sedation and/or procedure were discussed by physician. The patient agrees to continue. Procedure started. Physician arrived. [facility] Clinical Fraility Score: 4: Vulnerable. Talking Books Library Clerk Indications: Worsening Angina. Chest Pain Symptom Assessment: Atypical Angina. Correct patient, site and procedure confirmed by cath team. Current diagnosis: Chest Pain. PERRLA. Strong, equal hand loan servicing representative bilaterally. Lungs clear x 5 lobes. IV Site on Arrival: 20 gauge in the left anticubital. IV Fluids: 0.9% NaCl at KVO. 0 mL infused prior to minilab operator. Pre Procedural Pulses: right dorsalis pedis was 2+. Pre Procedural Pulses: left dorsalis pedis was 1+. Pre Procedural Pulses: bilateral posterior tibial was 2+. Pre Procedural Pulses: bilateral radial was 2+. Oxygen started at 2liters/min via nasal canula. right groin was prepped with chloroprep then draped in the usual sterile fashion. right radial was prepped with chloroprep then draped in the usual sterile fashion. Baseline sample Acquired. HR: 56 BPM. Physician scrubbed in. Immediate Pre-Procedure Time Out. Correct Patient: Yes; Correct Procedure: Yes; Correct Site: Yes; Correct Patient Position: Yes; Correct Supplies: Yes; Dried Flammable Prep: Yes; Blood Products Available: N/A;. Lidocaine 1% infiltrated to the right groin. Arterial access obtained with micropuncture set. A 5 peruvian JL4 catheter in over wire. Multiple views taken of left coronary artery. Catheter removed over the standard wire. A 5 peruvian JR4 catheter in over wire. Multiple views taken of right coronary artery. BLANCO to LAD visualized. Catheter removed over the standard wire. A 5 peruvian LCB catheter in over wire. SVG's to OM visualized and patent. Catheter removed over the standard wire. A 5 peruvian Angled Pig catheter in over wire. EDP Sample taken: LV 131/-19,6; HR: 57 BPM; SpO2: 98%. LV gram performed in CLEMENTS @ 12 mL/second for a total of 36 mL. EDP Sample taken: LV 124/-18,5; HR: 60 BPM; SpO2: 98%. Pullback taken: LV 125/-17,6; AO 122/51(79); Mean: 0mmHg, Peak to Peak: 0mmHg, SEP: 15sec/min; HR: 59 BPM; SpO2: 98%. Catheter removed over the standard wire. Physician scrubbed out. Physician review of cine films. A Suture was successful obtaining hemostatsis at the Right Femoral artery insertion site. Arterial sheath flushed and connected to tranducer and pressure bag with heparinized saline. Post Procedure: Pulses reassessed and unchanged. PERRLA. Strong, equal hand loan servicing representative bilaterally. No VTE prophylaxis required. Medication's Wasted: Other = Fentanyl 50 mcg. Medication's Wasted: Lidocaine 1% = 10 mL. Medication's Wasted: Heparin = 2500 units. Complications: None. Estimated blood loss: 5mL-10mL. Responsiveness - Normal response to verbal stimuli; alert and oriented, PERRLA. Vital chart was stopped. Airway - Unaffected, no intervention required; spontaneous ventilation. Circulation: W/N/L, pulses unchanged. Nausea/Vomiting: No. Procedure completed. Patient transferred by bed to CPRU. Access Site Site: Right Femoral artery Sheath Size: 6 Fr Hemostasis Method: Suture Hemostasis Success: Successful Procedure Medications Start: 7:16 AM Stop: 7:16 AM Medication: Versed Amount: 1 mg Route: I.V. Start: 7:16 AM Stop: 7:16 AM Medication: Fentanyl Amount: 50 mcg Route: I.V. Start: 7:32 AM Stop: 7:32 AM Medication: Heparin Amount: 1500 units Route: I.V. Start: 7:33 AM Stop: 7:33 AM Medication: Versed Amount: 1 mg Route: I.V. Start: 7:54 AM Stop: 7:54 AM Medication: 0.9% Saline Amount: 250 ml Route: I.V. praful Lopez, the attending physician, have reviewed and verified all procedure medications. Yes, all medications given per verbal order History/Risk Factors Hypertension: Yes Dyslipidemia: Yes Peripheral Arterial Disease (PAD): No Myocardial Infarction (NE): No Obesity: No Renal Disease: No Tobacco Use: Former Prior Interventions PCI: No CABG: Yes Valve Surgery: No Report Signatures Finalized by Dr Naseem Villalobos MD [facility] on 06/07/2024 01:54 PM
[2024-06-07 06:03] LABS: Basophils % 0.5 %; Eosinophils # 0.3 10^3/uL (0.0-0.8); Eosinophils % 6.7 %; Lymphocytes # 0.9 10^3/uL (0.8-4.8); Lymphocytes % 23.5 %; Mean Corpuscular HGB Conc 33.2 g/dL (30-55); Mean Corpuscular Hemoglobin 28.9 pg (27-33); Mean Corpuscular Volume 87.2 fl (82-101); Mean Platelet Volume 10.2 fL (7.4-10.4); Monocytes # 0.3 10^3/uL (0.2-0.9); Monocytes % 9.1 %; Neutrophils # 2.25 10^3/uL (1.8-7.7); Neutrophils % 59.9 %; Nucleated Red Blood Cells % 0 %; Platelet Count 205 10^3/cmm (157-399); Red Cell Distribution Width 11.9 % (12.1-15.1); White Blood Count 3.75 10^3/uL (3.29-11.43)
[2024-06-07] MEDS: diphenhydrAMINE 50 mg Capsule PO (06:08)
[2024-06-07 06:19] LABS: Anion Gap 14.2 (5-19); Blood Urea Nitrogen 14 mg/dL (8-23); Calcium 8.9 mg/dL (8.5-10.5); Carbon Dioxide 27 mmol/L (22-29); Chloride 104 mmol/L (98-107); Glomerular Filtration Rate 73.9 mL/min (90-130); Glucose 96 mg/dL (65-115); Osmolality Calculated 292 mOsm/kg (285-295); Potassium 4.2 mmol/L (3.5-5.1); Sodium 141 mmol/L (136-145)
--- NOTE | 2024-06-07 07:14 | W.PM.OPSUD ---
Surgery/Procedure H&P Update DATE OF PROCEDURE: June 07, 2024 DATE H&P PERFORMED: 05/28/24 H&P UPDATE INFORMATION: I have reviewed H&P completed within last 30 days, I have examined patient prior to procedure and No changes to prior documentation PREOP DIAGNOSIS: ASHD PRIMARY INDICATION FOR PROCEDURE: Patient with a history of ASHD, status post two-vessel coronary bypass surgery, presenting with chest pain. Abnormal Myocardial perfusion imaging PLANNED PROCEDURE: Operation Date: 06/07/24 07:00 Proposed Procedures p Cardiac Catheterization(Left) - Naseem Villalobos MD PATIENT REASSESSED PRIOR TO SEDATION, WITH NO CHANGE NOTED: Yes PHYSICAL EXAM: alert, oriented x 3 and clear to auscultation bilaterally AIRWAY EVAL/ANESTHESIA PLAN: normal airway, see other exam findings, ASA III, Monitored Anesthesia, Local Anesthesia, Risks, benefits & alternatives of sedation and/or procedure discussed and Patient agrees to continue as planned
--- NOTE | 2024-06-07 08:06 | PC.NURSE ---
received telephone order to pull the right groin sheath in [address] millan.
--- NOTE | 2024-06-07 09:23 | PC.NURSE ---
received pt from label folder pt is alert,orientedx4. right groin sheath 6 Fr intact and attached to pressure bag. no bleeding,hematoma or swelling noted. pedal pulses are palpable+3. activity restrictions discuss to pt post angiogram and bedrest. call light provided to pt. urinal provided.
--- NOTE | 2024-06-07 16:29 | PC.NURSE ---
shift report Sheath pulled at approximately 10:30 AM from right groin. 6 F sheath cath tip is intact. Pressure held for 20 mins. no hematoma, bleeding or swelling noted. Pedal pulses are palpable +3. Activity restrictions to right upper extremity discuss to pt and bedrest. Educated pt to monitor for any signs of unusual pain, pressure, burning sensation or wetness to right groin to call nurse JAVIER. pt verbalizes understanding. Call light provided to pt.
--- NOTE | 2024-06-07 17:31 | PC.NURSE ---
Ambulation Pt ambulated down hallways. no hematoma, bleeding or swelling noted. dressing dry,clean and intact.
== END 2024-06-07 18:00 | disposition home or self-care (01) ==
LOC: CCL 05:43 → CSU 08:18
PROVIDERS: PCP Family Medicine; Visit Provider Internal Medicine Cardiovascular Disease
DX: I25.10 Atherosclerotic heart disease of native coronary artery without angina pectoris (principal); Z95.1 Presence of aortocoronary bypass graft; I10 Essential (primary) hypertension; E78.5 Hyperlipidemia, unspecified; Z87.891 Personal history of nicotine dependence; I42.9 Cardiomyopathy, unspecified; Z79.82 Long term (current) use of aspirin
CPT/HCPCS: 36415; 80048; 85025; 93459; 96374; 96375; 99152; 99153; C1769; C1887; C1894; J1644; J2250; J3010; J7030; Q0163; Q9967

== ENCOUNTER → 2024-06-21 13:30 | Outpatient (BNVA) | payer MEDICARE, MEDICAID, SELFPAY | PROVIDERS: PCP Family Medicine; Visit Provider Nurse Practitioner Family | DX: I25.10 Atherosclerotic heart disease of native coronary artery without angina pectoris (principal); Z87.891 Personal history of nicotine dependence | CPT/HCPCS: 36415; 80048; 99214 ==

== ENCOUNTER → 2024-08-17 12:16 | Outpatient (BNVA) | payer MEDICARE, MEDICAID, SELFPAY | PROVIDERS: PCP Family Medicine; Visit Provider Internal Medicine Cardiovascular Disease | DX: E78.5 Hyperlipidemia, unspecified (principal) | CPT/HCPCS: 36415; 80061; 80076; 99214 ==